=== PATIENT | female | born 1980 | race Caucasian/White ===

== ENCOUNTER → 2019-08-30 | Outpatient (CLI) | payer SELFPAY ==
[~2019-08-30] MED LIST: CATHETER FLUSH 10 ML SYR IV PRN; CEPH-507 PO; DOCU-143 PO; HOLD METFORMIN - RECEIVED CONTRAST 20 ML VIAL IV SCH; HYDR-4226 PO; IBUP-1773 PO; IOHEXOL 350 MG/ML 100 ML (OMNIPAQUE 350) VIAL IV ONE; MAGN400O7 PO; NF-CIPDEC OT; NS 100 ML (IVPB) BAG IV ONE; POTA10TA PO; PREN-37 PO
[2019-08-30 16:43] LABS: HEMOGLOBIN 12.1 G/DL (11.5-16.0); MEAN PLATELET VOLUME 10.6 FL (7.4-10.4); RED CELL DISTRIBUTION WIDTH 12.4 % (10.0-14.5); WHITE BLOOD COUNT 7.3 10^3/uL (4.3-11.0)
--- NOTE | 2019-08-30 18:50 | Diagnostic Imaging Report ---
PROCEDURE: CT head with and without contrast. TECHNIQUE: Multiple contiguous axial images were obtained through the brain before and after the administration of intravenous contrast. Auto Exposure Controls were utilized during the CT exam to meet ALARA standards for radiation dose reduction. INDICATION: Optic atrophy. Bilateral visual problems. FINDINGS: There is a solid mass which appears to be arising out of the sella which measures 3.5 x 3.6 x 3.1 cm. 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 This is homogeneous in appearance and does show homogeneous overall enhancement. This does extend laterally and displaces the carotid siphons peripherally somewhat. The anterior cerebral artery and the M1 segments are displaced as well due to the superior encroachment by the mass. The ventricles are not dilated. Cortical gyral pattern is normal. The basal cisterns are clear. No other abnormal enhancement is demonstrated. No definite extension through the floor of the sella; however, there does appear to be thinning with loss of typical cortical thickness along the superior margin of the left sphenoid sinus. IMPRESSION: Large mass compressing the optic chiasm and displacing the anterior and middle cerebral arteries, as described. 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 This was called and discussed with Trevin Schulz. Dictated by: Dictated on workstation # [id number]
== END ==
LOC: RAD 15:19
DX: H47.20 Unspecified optic atrophy (principal); D35.2 Benign neoplasm of pituitary gland; H47.49 Disorders of optic chiasm in (due to) other disorders
CPT/HCPCS: 36415; 70470; 85027

== ENCOUNTER → 2020-06-20 | Outpatient (CLI) | payer OTHER ==
[~2020-06-20] MED LIST changes: -CATHETER FLUSH 10 ML SYR IV PRN; +GADOBUTROL 7.5 MMOL/7.5 ML (GADAVIST) VIAL IV ONE; -HOLD METFORMIN - RECEIVED CONTRAST 20 ML VIAL IV SCH; -IOHEXOL 350 MG/ML 100 ML (OMNIPAQUE 350) VIAL IV ONE; -NS 100 ML (IVPB) BAG IV ONE
--- NOTE | 2020-06-20 12:20 | Diagnostic Imaging Report ---
EXAM: MRI BRAIN PITUITARY W/WO CON INDICATION: History of pituitary surgery in September 2019. COMPARISON: None available. FINDINGS: Minimal nonspecific T2 hyperintensities in the supratentorial white matter. No abnormal intracranial enhancement. Normal morphology of the major midline structures, posterior fossa and cerebellar pontine angle. No hydrocephalus or extra-axial fluid collections. Normal intracranial flow voids. The orbits are unremarkable. Fluid in the mastoids bilaterally. Dedicated sequences through the level of the sella demonstrate abnormal enhancing soft tissue throughout the sella, extending superiorly on the left to involve the optic chiasm and left optic nerve. In total, this measures approximately 2.0 x 1.4 x 1.4 cm (LR x AP x SI). This abnormal enhancing soft tissue also circumferentially involves the right internal carotid artery cavernous segment which maintains normal flow void. The pituitary infundibulum is not well seen. There is similar enhancing soft tissue in the sphenoid sinus which may appear to be an extension inferiorly through the floor of the sella. This component measures 0.9 x 1.6 x 1.2 cm. There are also postoperative findings of transphenoidal approach and mucosal thickening within the maxillary, ethmoid and sphenoid sinuses. IMPRESSION: 1. Evidence of a transsphenoidal pituitary procedure with irregular-shaped abnormal enhancing mass in the sella, measurements above. This mass involves the optic chiasm and proximal left optic nerve. There is also circumferential involvement of the right cavernous ICA which maintains normal flow void. This mass also likely extends through the floor of the sella into the sphenoid. 2. Mild mucosal thickening throughout the ethmoid, sphenoid and maxillary sinuses. 3. MRI of the brain is otherwise unremarkable. Dictated by: Dictated on workstation # [id number]
== END ==
LOC: RAD 08:45
PROVIDERS: ATTEND Internal Medicine Endocrinology, Diabetes & Metabolism
DX: D35.2 Benign neoplasm of pituitary gland (principal); E22.0 Acromegaly and pituitary gigantism; J01.20 Acute ethmoidal sinusitis, unspecified; J32.3 Chronic sphenoidal sinusitis; J32.0 Chronic maxillary sinusitis
CPT/HCPCS: 70553

== ENCOUNTER 2020-09-18 14:10 | Outpatient (RCR) | payer MEDICAID, OTHER ==
[2020-07-30 16:24] LABS: BUN/CREATININE RATIO 10; CREATININE SERUM 0.61 MG/DL (0.60-1.30); GFR ESTIMATED > 60
[~2020-09-18 14:10] MED LIST changes: -GADOBUTROL 7.5 MMOL/7.5 ML (GADAVIST) VIAL IV ONE
== END 2020-10-28 | disposition home or self-care (01) ==
LOC: ONC 14:10
PROVIDERS: ATTEND Radiology Radiation Oncology
DX: D35.2 Benign neoplasm of pituitary gland (principal); K21.9 Gastro-esophageal reflux disease without esophagitis; E78.2 Mixed hyperlipidemia; I10 Essential (primary) hypertension; Z98.890 Other specified postprocedural states; Z79.899 Other long term (current) drug therapy
CPT/HCPCS: 82565; 84520; 84703; G0463; 77300; 77301; 77336; 77338; 77386; 99205

== ENCOUNTER 2020-10-30 10:08 | Outpatient (RCR) | payer MEDICAID | END 2021-01-28 | disposition home or self-care (01) | LOC: ONC 10:08 | PROVIDERS: ATTEND Radiology Radiation Oncology | DX: D35.2 Benign neoplasm of pituitary gland (principal); K21.9 Gastro-esophageal reflux disease without esophagitis; E78.2 Mixed hyperlipidemia; I10 Essential (primary) hypertension; Z98.890 Other specified postprocedural states | CPT/HCPCS: 99213 ==